=== PATIENT | male | born 1940 | race Caucasian/White ===

== ENCOUNTER → 2017-02-07 | Outpatient (CLI) | payer MEDICARE ==
[~2017-02-07] MED LIST: ALBU0.63; ALBU17I; ASPI81CH5; FENO50TA; FISH1000; HYZA100T4; OMEP20CA5; VITA400C70
[2017-02-07 09:02] LABS: FREE T4 1.16 NG/DL (0.76-1.46)
== END ==
LOC: CLAB 07:30
DX: E89.0 Postprocedural hypothyroidism (principal)
CPT/HCPCS: 36415; 84439; 84443

== ENCOUNTER → 2017-04-22 | Outpatient (CLI) | payer MEDICARE ==
[2017-04-22 08:43] LABS: FREE T4 1.26 NG/DL (0.76-1.46)
== END ==
LOC: CLAB 07:36
DX: E89.0 Postprocedural hypothyroidism (principal)
CPT/HCPCS: 36415; 84439; 84443